=== PATIENT | male | born 1960 | race American Indian/Alaskan Native ===

== ENCOUNTER 2018-05-29 23:08 | Emergency (ER) | payer BC, OTHER ==
[2018-05-29 23:08] VITALS: BMI 26.6
[2018-05-30 00:14] VITALS: BP 143/97
[2018-05-30] MEDS ORDERED: Sodium Chloride 0.9% 1,000 ML IV STA (00:16)
--- NOTE | 2018-05-30 00:22 | ED PDOC ---
Arrival/HPI - General Historian: Patient - History of Present Illness Narrative History of Present Illness (Text): 05/30/18 02:56 57 y/o with no significant PMH who presents to ED c/o headache x 8 hours. Pt states that he has had a frontal and posterior headache since this morning with associated sinus pressure and intermittent spots in his vision. Took 2 tylenols this morning for pain without relief. Pt took BP at home and found it to be elevated at 150/100. Denies fever, chills, chest pain, palpitations, abdominal pain, N/V, facial droop, changes in speech, weakness, difficulty walking, numbness, paresthesias. 05/30/18 03:00 <Evelyne Daigle - Last Filed: 05/30/18 02:56> <Lazaro Casillas - Last Filed: 06/01/18 06:27> - General Chief Complaint: Headache Time Seen by Provider: 05/30/18 00:03 Past Medical History - Provider Review Nursing Documentation Reviewed: Yes - Infectious Disease Hx of Infectious Diseases: None - Tetanus Immunization Tetanus Immunization: Unknown - Past Medical History Past Medical History: No Previous - HEENT Hx Blind: Yes (RIGHT EYE SINCE ) - Hematological/Oncological Hx Blood Transfusions: No Hx Blood Transfusion Reaction: (NA) - Musculoskeletal/Rheumatological Hx Falls: No - Gastrointestinal Hx Gastrointestinal Disorders: Yes (Colitis) - Psychiatric Hx Depression: No Hx Emotional Abuse: No Hx Physical Abuse: No Hx Substance Use: No - Surgical History Hx Orthopedic Surgery: Yes (LEFT WRIST SX) - Anesthesia Hx Anesthesia Reactions: No Hx Malignant Hyperthermia: No - Suicidal Assessment Feels Threatened In Home Enviroment: No <Evelyne Daigle - Last Filed: 05/30/18 02:56> Family/Social History - Physician Review Nursing Documentation Reviewed: Yes Family/Social History: No Known Family HX Smoking Status: Never Smoked Hx Alcohol Use: Yes (Socially) Hx Substance Use: No Hx Substance Use Treatment: No <Evelyne Daigle - Last Filed: 05/30/18 02:56> Allergies/Home Meds <Evelyne Daigle - Last Filed: 05/30/18 02:56> <Lazaro Casillas - Last Filed: 06/01/18 06:27> Allergies/Adverse Reactions: Allergies No Known Allergies Allergy (Verified 10/26/13 17:07) Review of Systems - Physician Review All systems were reviewed & negative as marked: Yes - Review of Systems Constitutional: Normal Eyes: Vision Changes ENT: Normal Respiratory: Normal. absent: SOB, Cough Cardiovascular: Normal. absent: Chest Pain, Palpitations, Syncope Gastrointestinal: Normal. absent: Abdominal Pain, Stool Changes, Nausea, Vomiting Genitourinary Male: Normal Musculoskeletal: Normal Skin: Normal Neurological: Headache, Dizziness. absent: Focal Weakness, Gait Changes, Speech Changes, Facial Droop Endocrine: Normal. absent: Diaphoresis Hemo/Lymphatic: Normal Psychiatric: Normal <Evelyne Daigle - Last Filed: 05/30/18 02:56> Physical Exam Vital Signs Reviewed: Yes Vital Signs BP 05/30/18 00:14 143/97 H Temperature: Afebrile Blood Pressure: Hypertensive Pulse: Regular Respiratory Rate: Normal Appearance: Positive for: Well-Appearing, Non-Toxic, Comfortable Pain Distress: None Mental Status: Positive for: Alert and Oriented X 3 - Systems Exam Head: Present: Atraumatic, Normocephalic Pupils: Present: PERRL Extroacular Muscles: Present: EOMI, Other (right eye blindness and ptosis since ) Conjunctiva: Present: Normal Ears: Present: Normal Mouth: Present: Moist Mucous Membranes Pharnyx: Present: Normal Nose (Internal): Present: Normal Inspection, Moist Neck: Present: Normal Range of Motion. No: Meningeal Signs, MIDLINE TENDERNESS, Paraspinal Tenderness, Lymphadenopathy Respiratory/Chest: Present: Clear to Auscultation, Good Air Exchange. No: Respiratory Distress, Accessory Muscle Use Cardiovascular: Present: Regular Rate and Rhythm, Normal S1, S2. No: Murmurs Abdomen: No: Tenderness, Distention, Peritoneal Signs Back: Present: Normal Inspection. No: Midline Tenderness, Paraspinal Tenderness Upper Extremity: Present: Normal Inspection, Normal ROM, NORMAL PULSES. No: Cyanosis, Edema Lower Extremity: Present: Normal Inspection, NORMAL PULSES, Normal ROM Neurological: Present: GCS=15, CN II-XII Intact, Speech Normal, Motor Func Grossly Intact, Normal Sensory Function, Normal Cerebellar Funct, Gait Normal, M irene Normal, Normal 2Pt Descrimination Skin: Present: Warm, Dry, Normal Color. No: Rashes Lymphatic: No: Cervical Adenopathy Psychiatric: Present: Alert, Oriented x 3, Normal Insight, Normal Concentration <JoshBlaine schereryssa - Last Filed: 05/30/18 02:56> Vital Signs BP Pulse Ox 05/30/18 03:11 98 05/30/18 00:14 143/97 H <Lazaro Casillas - Last Filed: 06/01/18 06:27> Medical Decision Making ED Course and Treatment: 05/30/18 00:19 Initial Plan: --EKG --Troponin --CBC --CMP --Orthostatics --Toradol --IVF --head CT --HCTZ EKG: rate 57bpm; normal sinus rhythm; ST elevations in V1-V4 similar to prior EKG 04/2014, consistent with early repolarization CBC, CMP, Troponin: wnl Head CT: no acute hemorrhage On reeval, pt reports decreased pain. Diastolic BP is consistently under 100, no stat medications indicated. Will give first dose of HCTZ on discharge Impression: Elevated BP reading Plan: --HCTZ 12.5mg daily --Followup with primary doctor within 2 days --return if symptoms worsen - Lab Interpretations Lab Results: 05/30/18 00:13 05/30/18 00:13 Lab Results 05/30/18 00:13: WBC 5.7 D, RBC 4.37, Hgb 14.1, Hct 41.7 L, MCV 95.4, MCH 32.3, MCHC 33.8, RDW 13.6, Plt Count 223, MPV 10.4, Gran % 85.7 H, Lymph % (Auto) 12.7 L, [place] % (Auto) 1.2, Eos % (Auto) 0.2 L, Baso % (Auto) 0.2, Gran # 4.84, Lymph # (Auto) 0.7 L, [place] # (Auto) 0.1, Eos # (Auto) 0.0, Baso # (Auto) 0.01 05/30/18 00:13: Sodium 137, Potassium 4.5, Chloride 105, Carbon Dioxide 24, Anion Gap 14, BUN 16, Creatinine 1.0, Est GFR ( Amer) > 60, Est GFR (Non- Af Amer) > 60, Random Glucose 164 H, Calcium 9.6, Total Bilirubin 0.5, AST 38, ALT 30, Alkaline Phosphatase 57, Troponin I < 0.01, Total Protein 8.6 H, Albumin 4.6, Globulin 3.9, Albumin/Globulin Ratio 1.2 I have reviewed the lab results: Yes Interpretation: All labs normal - EKG Interpretation Interpreted by ED Physician: Yes Type: 12 lead EKG Comparison: Similar to previous EKG - Medication Orders Current Medication Orders: Sodium Chloride (Sodium Chloride 0.9%) 1,000 mls @ 999 mls/hr IV .Q1H1M STA Stop: 05/30/18 01:16 Discontinued Medications Ketorolac Tromethamine (Toradol) 30 mg IVP STAT STA Stop: 05/30/18 00:17 <Evelyne Daigle - Last Filed: 05/30/18 02:56> ED Course and Treatment: 06/01/18 06:27 The documented history was done by the physician laundry assistant. The documented physical exam was done by the physician laundry assistant. The documented procedures were done by the physician laundry assistant, I was available for consultation during the PA/SCOURING MACHINE TENDER evaluation. The chart was reviewed by me, and I agree with the management and plan. - Lab Interpretations Lab Results: 05/30/18 00:13 05/30/18 00:13 Lab Results 05/30/18 00:13: WBC 5.7 D, RBC 4.37, Hgb 14.1, Hct 41.7 L, MCV 95.4, MCH 32.3, MCHC 33.8, RDW 13.6, Plt Count 223, MPV 10.4, Gran % 85.7 H, Lymph % (Auto) 12.7 L, [place] % (Auto) 1.2, Eos % (Auto) 0.2 L, Baso % (Auto) 0.2, Gran # 4.84, Lymph # (Auto) 0.7 L, [place] # (Auto) 0.1, Eos # (Auto) 0.0, Baso # (Auto) 0.01 05/30/18 00:13: Sodium 137, Potassium 4.5, Chloride 105, Carbon Dioxide 24, Anion Gap 14, BUN 16, Creatinine 1.0, Est GFR ( Amer) > 60, Est GFR (Non- Af Amer) > 60, Random Glucose 164 H, Calcium 9.6, Total Bilirubin 0.5, AST 38, ALT 30, Alkaline Phosphatase 57, Troponin I < 0.01, Total Protein 8.6 H, Albumin 4.6, Globulin 3.9, Albumin/Globulin Ratio 1.2 - RAD Interpretation Radiology Orders: 05/30/18 01:50 HEAD W/O CONTRAST [CT] Stat - Medication Orders Current Medication Orders: Discontinued Medications Hydrochlorothiazide (Microzide) 12.5 mg PO STAT STA Stop: 05/30/18 02:56 Last Admin: 05/30/18 03:09 Dose: 12.5 mg Sodium Chloride (Sodium Chloride 0.9%) 1,000 mls @ 999 mls/hr IV .Q1H1M STA Stop: 05/30/18 01:16 Last Admin: 05/30/18 00:33 Dose: 999 mls/hr eMAR Start Stop Document 05/30/18 00:33 SS (Rec: 05/30/18 00:33 SS [id number]) Intravenous Solution Start Date 05/30/18 Start Time 00:33 End Date 05/30/18 End time 01:33 Total Infusion Time 60 Ketorolac Tromethamine (Toradol) 30 mg IVP STAT STA Stop: 05/30/18 00:17 Last Admin: 05/30/18 00:33 Dose: 30 mg MAR Pain Assessment Document 05/30/18 00:33 SS (Rec: 05/30/18 00:34 SS [id number]) Pain Reassessment Is this a pain reassessment? No Sleep Is patient sleeping during reassessment? No Presence of Pain Presence of Pain Yes Location Pain Location Body Telephonic Case Manager IVP Administration Document 05/30/18 00:33 SS (Rec: 05/30/18 00:34 SS [id number]) Charges for Administration # of IVP Administrations 1 <Lazaro Casillas - Last Filed: 06/01/18 06:27> Disposition/Present on Arrival - Present on Arrival Any Indicators Present on Arrival: No History of DVT/PE: No History of Uncontrolled Diabetes: No Urinary Catheter: No History of Decub. Ulcer: No History Surgical Site Infection Following: None - Disposition Have Diagnosis and Disposition been Completed?: Yes Disposition Time: 03:00 <Evelyne Daigle - Last Filed: 05/30/18 02:56> <Lazaro Casillas - Last Filed: 06/01/18 06:27> - Disposition Diagnosis: Elevated blood pressure reading Disposition: HOME/ ROUTINE Condition: IMPROVED Discharge Instructions (ExitCare): High Blood Pressure in Adults, Hypertension (ED) Additional Instructions: Take BP medicine once daily in the morning until followup with primary Increase fluids Check BP twice daily and record readings Followup with primary within 2 days Return to ED if symptoms worsen Prescriptions: RX: Hydrochlorothiazide [Microzide] 12.5 mg PO DAILY #30 cap Referrals: Nano Curiel MD [Primary Care Provider] - Follow up with primary Forms: [facility] (Norwegian), WORK NOTE
[2018-05-30 00:40] LABS: BASO # 0.01 K/mm3 (0.0-2.0); BASO % 0.2 % (0.0-3.0); EOS % 0.2 % (1.5-5.0); GRAN # 4.84 (1.4-6.5); GRAN % 85.7 % (50.0-68.0); HEMOGLOBIN 14.1 g/dL (14.0-18.0); LYMPH # 0.7 (1.2-3.4); LYMPH % 12.7 % (22.0-35.0); MEAN CELL VOLUME 95.4 fl (80.0-105.0); MEAN CORPUSCULAR HEMOGLOBIN 32.3 pg (25.0-35.0); MEAN CORPUSCULAR HGB CONC 33.8 g/dl (31.0-37.0); MEAN PLATELET VOLUME 10.4 fl (7.0-11.0); MONO # 0.1 (0.1-0.6); MONO % 1.2 % (1.0-6.0); RBC 4.37 10^6/uL (3.5-6.1); RED CELL DISTRIBUTION WIDTH 13.6 % (11.5-14.5); WHITE BLOOD COUNT 5.7 10^3/ul (4.5-11.0)
[2018-05-30 00:59] LABS: ALB/GLOB RATIO 1.2 (1.1-1.8); ALBUMIN 4.6 g/dL (3.0-4.8); ALT/SGPT 30 U/L (7-56); AST/SGOT 38 U/L (17-59); BLOOD UREA NITROGEN 16 mg/dL (7-21); CALCIUM 9.6 mg/dL (8.4-10.5); GFR NON-AFRICAN AMERICAN > 60
[2018-05-30 01:10] LABS: TROPONIN I < 0.01 ng/mL
[2018-05-30 03:12] VITALS: O2SAT 98
--- NOTE | 2018-05-30 08:00 | CT ---
Date of service: 05/30/2018 PROCEDURE: CT HEAD WITHOUT CONTRAST. HISTORY: headache COMPARISON: 10/26/2013 TECHNIQUE: Axial computed tomography images were obtained through the head/brain without intravenous contrast. Radiation dose: Total exam DLP = 925 mGy-cm. This CT exam was performed using one or more of the following dose reduction techniques: Automated exposure control, adjustment of the mA and/or kV according to patient size, and/or use of iterative reconstruction technique. FINDINGS: HEMORRHAGE: No intracranial hemorrhage. BRAIN: No mass effect or edema. No atrophy or chronic microvascular ischemic changes. VENTRICLES: Unremarkable. No hydrocephalus. CALVARIUM: Unremarkable. PARANASAL SINUSES: Unremarkable as visualized. No significant inflammatory changes. MASTOID AIR CELLS: Unremarkable as visualized. No inflammatory changes. OTHER FINDINGS: The report concurs with the preliminary [facility] report IMPRESSION: Normal CT of the Head.
--- NOTE | 2018-05-30 09:14 | CARD ---
APPROVED REPORT Date of service: 05/30/2018 EKG Measurement Heart [id number] <Conclusion> Sinus bradycardia Voltage criteria for left ventricular hypertrophy ST elevation, consider early repolarization, pericarditis, or injury Abnormal ECG
== END 2018-05-30 03:11 | disposition home or self-care (01) ==
LOC: ED 23:08
DX: R03.0 Elevated blood-pressure reading, without diagnosis of hypertension (principal)
CPT/HCPCS: 70450; 80053; 84484; 85025; 93005; 96361; 96374; 99285; J1885; J7030